=== PATIENT | female | born 1995 | race Caucasian/White ===

== ENCOUNTER → 2016-12-23 | Outpatient (REF) | payer OTHER | LOC: M LAB REF 17:25 | PROVIDERS: ATTEND Advanced Practice Midwife | DX: Z11.3 Encounter for screening for infections with a predominantly sexual mode of transmission (principal) ==

== ENCOUNTER → 2017-01-27 | Outpatient (CLI) | payer OTHER ==
--- NOTE | 2017-01-27 11:19 | REP ---
Obstetric sonography: History: Supervision of for anatomy. Findings: Scanning through the gravid uterus demonstrates a viable single intrauterine gestation in a cephalic lie. motion is observed and heart rate is recorded at 133 beats per minute. A posterior placenta is seen grade zero without evidence of previa. Amniotic fluid is subjectively normal. Closed cervical length is 4.2 cm measured transabdominally. No extrauterine abnormality is observed. Four-chamber heart view is abnormal with somewhat prominent atrial size and ventricular size bilaterally. Question atrial septal defect. The right and left ventricular outflow tract views are felt to be normal. The following additional anatomic structures are identified and felt to be sonographically unremarkable: cranium, choroid plexus, cavum, cerebellum and posterior fossa, face and profile, lungs, diaphragm, left-sided stomach, abdominal wall cord insertion, three-vessel umbilical cord, kidneys and bladder, spine, upper and lower extremities. Biometry chart: BPD 6.8 cm 27 weeks 3 days Head circumference 24.6 cm 26 week 5 days Abdominal circumference 22.2 cm 26 weeks 4 days Femur length 4.7 cm 25 weeks 5 days Humeral length 4.3 cm 26 weeks 0 days HC/AC ratio normal 1.11. Cephalic index normal 0.78. Estimated weight 923 grams, 2 pounds 0 ounces, 43rd percentile for 26 weeks 2 days. Impression: Viable single intrauterine gestation at 26 weeks 3 days by today's composite sonographic criteria. DEXTER by today's sonography May 02, 2017. Suspicion of atrial septal defect. Cardiomegaly. Recommend echocardiography. Signed by Tevin Hutchins MD 01/27/2017 12:09 P
== END ==
LOC: M RAD 08:48
PROVIDERS: ATTEND Obstetrics & Gynecology
DX: Z34.02 Encounter for supervision of normal first pregnancy, second trimester (principal); Z3A.27 27 weeks gestation of pregnancy

== ENCOUNTER → 2017-02-18 | Outpatient (CLI) | payer OTHER ==
[2017-02-18 13:28] LABS: MEAN CORPUSCULAR HEMOGLOBIN 33.3 pg (27.0-33.0); MEAN CORPUSCULAR HGB CONC 34.7 g/dl (32.0-36.5); MEAN CORPUSCULAR VOLUME 95.8 fl (80.0-96.0); RED CELL DISTRIBUTION WIDTH 12.8 % (11.5-14.5); WHITE BLOOD COUNT 10.3 K/mm3 (4.0-10.0)
== END ==
LOC: M LAB 11:50
PROVIDERS: ATTEND Obstetrics & Gynecology
DX: Z34.02 Encounter for supervision of normal first pregnancy, second trimester (principal)

== ENCOUNTER 2017-04-27 01:30 | Outpatient (CLI) | payer OTHER ==
[~2017-04-27] VITALS: Ht 177.8 cm; Wt 61.0 kg
[2017-04-27 01:40] VITALS: BP 135/83
[2017-04-27 07:34] VITALS: BP 117/80
[2017-04-27 08:13] LABS: MEAN CORPUSCULAR HEMOGLOBIN 31.6 pg (27.0-33.0); MEAN CORPUSCULAR HGB CONC 34.8 g/dl (32.0-36.5); RED CELL DISTRIBUTION WIDTH 13.1 % (11.5-14.5); WHITE BLOOD COUNT 10.9 K/mm3 (4.0-10.0)
[2017-04-27] MEDS ORDERED: PENICILLIN G POTASSIUM 5 MU VIAL As Ordered ONE (08:42)
[2017-04-27 09:45] VITALS: BP 105/56
== END 2017-04-27 10:15 | disposition other institution (70) ==
LOC: M LDO 01:30
PROVIDERS: ATTEND Obstetrics & Gynecology
DX: O62.0 Primary inadequate contractions (principal); O99.89 Other specified diseases and conditions complicating pregnancy, childbirth and the puerperium; O35.8XX1 Maternal care for other (suspected) fetal abnormality and damage, fetus 1; Q21.1 Atrial septal defect; Z3A.39 39 weeks gestation of pregnancy

== ENCOUNTER 2021-06-30 07:07 | Emergency (ER) | payer OTHER ==
[~2021-06-30] VITALS: Ht 177.8 cm; Wt 50.0 kg
[2021-06-30 10:10] VITALS: BP 116/71
== END 2021-06-30 10:14 | disposition home or self-care (01) ==
LOC: M ED 07:07
DX: U07.1 COVID-19 (principal); F17.200 Nicotine dependence, unspecified, uncomplicated